=== PATIENT | male | born 1930 | race Caucasian/White ===

== ENCOUNTER 2016-04-25 05:42 | Day surgery (SDC) | payer MEDICARE, OTHER ==
[2016-04-25] VITALS (8 sets, daily range): BP systolic 111–148; BP diastolic 54–69; PULSE 54–69; RESP 15–17; O2SAT 95–100
[~2016-04-25] VITALS: Ht 174 cm; Wt 69.0 kg
[~2016-04-25 05:42] MED LIST: ASPI-973 PO; BENA20TA PO; METO25TA6 PO; MULT1CAP33 PO; OMEP20TA86 PO; SIMV10TA4 PO; VIT100TA PO
[2016-04-25] MEDS ORDERED: Propofol 10,000 mCg/mL 20 mL Inj ONE (05:43)
[2016-04-25] MEDS: Lactated Ringer's 1,000 ML IV SCH ×2 (05:51→07:28)
--- NOTE | 2016-04-25 07:26 | PCM.HPANE ---
Patient Data Surgeon Admitting Provider: Attending Provider:Eli Gutierrez MD Primary Care Physician:Jessee Alfaro MD Other Provider:Yeny Smithingham Anesthesia Reason for Visit Lymphadenopathy Ht/WT & BMI Height (Feet): 5 Height (Inches): 8.5 Weight (Kilograms): 69 Body Mass Index 22.00 Allergies Coded Allergies: No Known Allergies (Verified , 04/01/03) Past Anesthesia History Anesthesia History: Denies:: Abnormal Airway, Anesthesia Reactions, Difficult Intubation Diabetes History Hx Diabetes?: No MRSA MRSA: No Medications Hypertension Medication: Yes Home Meds Incl Beta Marina: Yes Date Beta Marina Taken: Apr 25, 2016 Time Beta Marina Taken: 0500 Reported Medications Multivitamin (Multivitamins)1 Each Capsule1 Each PO 03/29/16 Vit B Complex 100 Cmb #3/Herbs (Balanced B-100 Tablet)100 Mg [id number] Mg PO 03/29/16 Simvastatin 10 Mg Krnhqq94 Mg PO HS Ref 0 03/29/16 Omeprazole 20 Mg Tablet.dr20 Mg PO DAILY 03/29/16 Aspirin 81 Mg Tnyfrp29 Mg PO DAILY Ref 0 03/29/16 Metoprolol Tartrate 25 Mg Vpaeil44.5 Mg PO BID 30 Days Ref 0 03/29/16 Benazepril 20 Mg Nxpcov85 Mg PO DAILY 03/29/16 History History of ENT Problems?: No HEENT History: Positive for:: Sinus Problem (occasional) Denies:: Abnormal Airway Cataracts Difficult Intubation Dysphagia Hearing Problem Denture Type: Full- Upper Hx of Heart Problems?: Yes Cardiovascular History: Positive for:: Hypertension Valvular Heart Disease (echo 10/2015- ef 65-70%) Denies:: Cardiac Surgery Chest Pain Congestive Heart Failure Edema Heart Murmur Irregular Heartbeat Pacemaker Thrombophlebitis Hx of Respiratory Problem?: No Respiratory History: Denies:: Asthma COPD Emphysema Oxygen Administration Pneumonia Tuberculosis Use of C-PAP Machine Use of Inhalers / NEBS Hx Neurologic Problems?: Yes Neurological History: Denies:: CVA Multiple Sclerosis Parkinson's Disease Seizures Other Neurological Pertinent: prior hx of resection intracranial meningioma Hx of GI Problems?: No Gastrointestinal History: Positive for:: Gastroesphageal Reflux Heartburn Denies:: Diverticulitis Gastrointestinal Bleeding Hepatitis Rectal Bleeding Hx of Problems?: No Genitourinary History: Denies:: Kidney Stones Urinary Tract Infection Male Hx: Denies:: Scrotal Mass Testicular Surgery Skin History: Denies:: History Skin Disorders? Pressure Ulcers Hx Musculoskeletal Problems?: No Musculoskeletal History: Denies:: Back Injury Joint Replacement Musculoskeletal Trauma (prior hx knee scope) Hx of Psycho/Social Problems?: No Psycho Social History: Positive for:: Anxiety Denies:: Bipolar Disorder Hx Depression Hx Surgeries?: Yes (brain, knee scope, FTSG for BCC neck) Hx Any Other Health Problems?: Yes Other History: Positive for:: Cancer (BCC (one required FTSG)) Hospitalization Thyroid Disease History Blood Transfusions: Denies:: Blood Transfusions Hx Diabetes: No Hx Alcohol Use: YesHx Substance Use: No Smoking Status: Former Smoker Have You Smoked inLast 12 mo: No Stop/Bang Treated for Sleep Apnea?: No Do You Have a CPAP Machine?: No S-Snoring: Do You Snore Loudly: No T-Tired: feel tired, fatigued: No O-Obsered: Observed not breath: No P-Blood Pressure: treated: Yes B- Body Mass Index > 35 kg/m2: No A- Age over 50: Yes N- Neck Large Circumference: No G- Gender Male: Yes YANNA Total Score: 3 YANNA Risk Assessment: Low Risk, <3 Yes Risk Assessment Category Category 1A: Patient has history of documented sleep apnea, and HAS NOT received any narcotic, sedative or anesthesia administration during this stay. Category 1B: Patient has history of documented sleep apnea, and HAS received any narcotic , sedative or anesthesia administration during this stay Category 2: Patient has SUSPECTED Obstructive Sleep Apnea, and HAS received any narcotic , sedative or anesthesia administration during this stay. Category 3: Patient has SUSPECTED Obstructive Sleep Apnea and HAS NOT received narcotic, sedative or anesthesia administration during this stay. Category 4: Outpatient in Procedural Areas with known sleep apnea or who screen positive for High Risk via the STOP/BANG questionnaire. Exam Exam Vital Signs Vital Signs Date Time Temp Pulse Resp B/P Pulse Ox O2 Delivery O2 Flow Rate FiO2 04/25/16 05:59 35.5 55 17 148/69 98 Room Air General Appearance: Oriented X3 HEENT/AIRWAY: MP 2 Lungs: Normal Air Movement Heart: Regular Rate/Rhythm Meds/Labs/Diagnostics Admission Meds Current Medications Lactated Ringer's (Lr) 1,000 ml @ 120 mls/hr Q8H20M IV Last administered on t 05:51; Start 04/25/16 at 05:00; Stop 04/25/16 at 13:19 Plan Impression Patient chart reviewed, patient interviewed and anesthestic plan with risks, benefits, and alternatives discussed, and informed consent obtained. NPO Status: 1800 04/24/16 ASA Physical Status: ASA2 Mod Systemic Disease Anesthetic Plan: GA Bene/Risks/Altern/Consents: Yes HP Complete Prior to Induction: Yes Coy Kirkpatrick MD Apr 25, 2016 07:25
[2016-04-25] MEDS ORDERED: Bupivacaine-MPF 0.5% 30 mL Inj INFILTRATE ONE (07:45)
[2016-04-25] MEDS ORDERED: Lactated Ringer's 1,000 ML IV SCH (08:02)
[2016-04-25] MEDS ORDERED: Lactated Ringer's 500 ML IV PRN (08:02)
[2016-04-25] MEDS ORDERED: HYDROmorphone 1 mg/mL Inj IVPUSH PRN (08:05)
[2016-04-25] MEDS ORDERED: Phenylephrine 10,000 mCg/mL Inj IVPUSH PRN (08:05)
[2016-04-25] MEDS ORDERED: MetoCLOpramide 5 mg/mL 2 mL Inj IVPUSH PRN (08:05)
[2016-04-25] MEDS ORDERED: Ondansetron 2 mg/mL 2 mL Inj IVPUSH PRN (08:05)
[2016-04-25] MEDS ORDERED: Dexamethasone 4 mg/mL Inj IVPUSH PRN (08:05)
[2016-04-25] MEDS ORDERED: fentaNYL-PF 50 mCg/mL 2 mL Inj IVPUSH PRN (08:05)
[2016-04-25] MEDS ORDERED: EPHEDrine Sulfate 50 mg/mL Inj IVPUSH PRN (08:05)
[2016-04-25] MEDS ORDERED: HYDROcodone-APAP 5-325 mg Tablet PO PRN (09:45)
[2016-04-25] MEDS ORDERED: HYDR-4003 PO (09:55)
--- NOTE | 2016-04-25 10:08 | PCM.SURGPO ---
Immediate Operative Note Date of Surgery: Apr 25, 2016 Pre Operative Diagnosis Lymphadenopathy Post Operative Diagnosis Lymphadenopathy Procedure Excisional biopsy of Right supraclavicular lymph node [employer] Surgeon: Eli Gutierrez MD Assistants: Les Lewis PAC Findings One obviously enlarged lymph node. Complications There were no periprocedural complications identified. Surgical Specimen Removed: Yes Specimen sent to Pathology: Yes Surgical Specimen description: 1. R Supraclavicular lymph node bearing tissue 2. R supraclavicular lyph node 3. R supraclavicular lymph node - divided in to 3 pieces for flow cytometry in addition to path Anesthetic Administered: GA Grafts, Implants: None Output, Estimated Blood Loss: 0 Blood Admin during surgery: No Attending Statement Traveling Buyer listed was medically necessary for the successful completion of the case Eli Gutierrez MD Apr 25, 2016 10:08
--- NOTE | 2016-04-25 10:27 | PCM.ANEP1 ---
Post Anesthesia Phase 1 PACU Phase 1 Assessment Date of Service: Apr 25, 2016 Vital Signs Vital Signs Date Time Temp Pulse Resp B/P Pulse Ox O2 Delivery O2 Flow Rate FiO2 04/25/16 10:24 58 15 125/59 95 Room Air 04/25/16 10:05 63 15 111/58 95 04/25/16 10:02 69 17 127/65 97 Room Air 04/25/16 09:55 57 15 139/64 100 Simple Mask 10 04/25/16 09:50 36.5 58 17 120/59 100 Simple Mask 10 04/25/16 05:59 35.5 55 17 148/69 98 Room Air Anesthetic Administered: GA Level of Alertness: Awake, talking Pain: No Nausea or Vomiting: No Oxygen Delivery: Room Air Lungs: Normal Air Movement Coy Kirkpatrick MD Apr 25, 2016 10:27
--- NOTE | 2016-04-25 10:28 | PCM.ANEP2 ---
Post Anesthesia Evaluation ASA/CMS Post Anesthesia VS in Patient's Normal Range?: Yes Resp Stable; Airway Patent?: Yes CV Function & Hydration Stable: Yes Mental Status Recovered?: Yes Pain control Satisfactory?: Yes N/V Control Satisfactory?: Yes Coy Kirkpatrick MD Apr 25, 2016 10:27
--- NOTE | 2016-04-25 10:48 | OP ---
[address] [address] OPERATIVE REPORT PATIENT: KAYLI SOSA : 1930 MR#: [id number] ADMIT: 04/25/2016 JOB ID: [id number] DATE OF SURGERY: 04/25/2016 PREOPERATIVE DIAGNOSIS(ES): Generalized lymphadenopathy. POSTOPERATIVE DIAGNOSIS(ES): Generalized lymphadenopathy. PROCEDURE PERFORMED: Right supraclavicular excisional lymph node biopsy. SURGEON: Eli Gutierrez MD. NON LINEAR EDITOR: Les Lewis PA-C COMPLICATIONS: None. CONDITION OF PATIENT: Stable. INDICATIONS: The patient is a 85-year-old gentleman who was instantly found to have lymphadenopathy in multiple anatomic locations upon investigating his shortness of breath a few months ago. His breathing felt fine now. None of the lymph nodes being palpated by the physicians were ever tender. These findings prompted Dr. Alfaro to refer him to Dr. Carbajal who in turn sent him to me for excisional biopsy of lymph node. On physical examination, noted to have a hard palpable lymph node in the right supraclavicular fossa and on CT he had a large portacaval lymph node and also iliac chain lymph node in addition to inguinal adenopathy. After discussing the risks, benefits, and alternatives, he is here today for excisional biopsy of right supraclavicular lymph node. PROCEDURE DETAILS: He underwent smooth induction of general anesthesia and the right neck was prepped and draped in the usual sterile fashion. Surgical time-out was undertaken using safety checklist, and all were in agreement. I made a 3 cm incision along Joanie lines. The right supraclavicular fossa had palpable swelling and divided the skin and subcutaneous tissue sharply and then opened the platysma. At this point I was feeling what appeared to be the palpable swelling deep to the right jugular. I isolated a branching vein, a small tributary into the jugular as retracting it with vessel loops and the jugular carefully exploring deep to that. I ended up sharply dissecting some lymph node-bearing tissue in this region but was not able to identify a discrete lymph node. Further exploration inferior to the omohyoid revealed one palpable lymph node which I sharply dissected from the surrounding tissues and sent for pathology. Upon further exploration, I felt a much larger lymph node in the more lateral aspect of the incision prompting me to extend the skin incision another centimeter and mobilize the omohyoid more laterally and isolated the palpable lymph node from surrounding attachments, controlling the lymphatics with clips and electrocautery as indicated. After removing this third specimen, I divided into three parts to send one to anatomic pathology and two parts for flow cytometry. After ensuring hemostasis, we closed the incision in layers with 3-0 Vicryl for the platysma followed by 4-0 Monocryl for the skin. He tolerated the procedure well and was taken to the recovery room in stable condition. SHANTANU
--- NOTE | 2016-05-02 13:31 | PATH ---
SURGICAL PATHOLOGY Attending Physician:Eli Gutierrez MD CASE STATUS: Signed Out PATIENT NAME: KAYLI SOSA PID: [id number] : 1930 DATE COLLECTED:04/25/2016 22:37 SPECIMEN: 1: Lymph Node, Biopsy 2: Lymph Node, Biopsy 3: Lymph Node, Biopsy CLINICAL HISTORY: LYMPHADENOPATHY 1). RIGHT SUPRACLAVICULAR LYMPH NODE BEARING TISSUE 2). RIGHT SUPRACLAVICULAR LYMPH NODE 3). 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 Abnormal CD5+ B-cell population identified (see Flow Comments) 2. 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 Immunohistochemical studies were performed on the lymph node in specimen 3 because it is the largest. 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 A subset of cells in the proliferation centers of the tissue are cyclin D1 positive, a finding that has been described in some CLL/SLL cases (see reference). Evaluation of the patient' s peripheral blood is recommended to determine if he may also exhibit an abnormal B-cell population in the peripheral circulation. If there is also peripheral blood involvement, FISH studies could be performed on the blood to look for molecular abnormalities with prognostic significance in CLL/SLL and to formally exclude the t(11;14) of mantle cell lymphoma. If the patient does not have significant peripheral blood involvement by CLL/SLL and if clinical interest warrants, sections of the paraffin-embedded tissue from specimen 3 could also be forwarded upon request for a FISH study to further exclude the t(11;14) of mantle cell lymphoma. Reference: Roxie Shelley et al. (2012) Chronic Lymphocytic Leukemia/Small Lymphocytic Lymphoma with Cyclin D1 Positive Proliferation Centers Do Not Have CCND1 Translocations or Gains and Lack SOX11 Expression. Am. J. Clin. Pathol. 138(1):132-139. Flow cytometry Comments: Flow cytometry identifies an abnormal mature B-cell population with predominantly small to intermediate cell size by forward scatter property, low-level kappa surface light chain restriction, and expression of intermediate CD19 and CD5, low-intermediate CD20 and CD22, intermediate-high CD23, and low CD11c, without CD10, FMC7, CD38, or CD103. This immunophenotype is most compatible with a chronic lymphocytic leukemia/small lymphocytic lymphoma (CLL/SLL); however, complete correlation with the morphologic and immunohistochemical features of the concurrent paraffin-embedded tissue, including evaluation of a cyclin D1 immunostain, will be required to exclude mantle cell lymphoma (MCL) and for definitive diagnosis. The abnormal B-cell population represents greater than 99% of the B-cells, and 79% of the lymphocytes and total viable leukocytes in this study. There is no immunophenotypic evidence of T-cell non-Hodgkin lymphoma. Flow cytometric analysis indicates that the viable leukocytes include greater than 99% lymphocytes, which are comprised of 80% B-cells, 19% T-cells, and 0.1% NK-cells. The mature B-cells have low-level kappa light chain restriction. The T-cells have a high-normal CD4:CD8 ratio of 4.9. GROSS DESCRIPTION: The following 3 specimens are received in formalin, labeled with the patient's name, and sublabeled as the following: (1) right supraclavicular lymph node bearing tissue; (2) right supraclavicular lymph node; (3) right supraclavicular lymph node #3. (1) The specimen consists of a piece of adipose tissue (3.5 x 3.5 x 0.4 cm) containing multiple possible lymph nodes (0.1 x 0.1-0.1 cm-0.5 x 0.4 x 0.2 cm). Section code: (1A) multiple candidate lymph nodes, intact; (1B) one lymph node, bisected; (1C, 1D) remaining adipose tissue. Specimen entirely submitted. (2) The specimen consists of a lymph node (0.9 x 0.6 x 0.6 cm). Section code: (2A) one lymph node, bisected. Specimen entirely submitted. (3) The specimen consists of a lymph node (0.6 x 0.5 x 0.4 cm). Section code: (3A) one lymph node, bisected. Specimen entirely submitted. Note: Also received are 2 tubes containing RPMI and tissue for flow cytometry analysis. 04/26/16 JM MICRO DESCRIPTION: Each of the small lymph nodes submitted in specimens 1-3 exhibits essentially complete architectural effacement by an atypical lymphoid infiltrate with a diffuse pattern. The lymphocytes are predominantly small, with condensed chromatin. Occasional slightly pale foci including intermediate-sized lymphocytes are also seen, consistent with proliferation centers (best seen in specimen 3). No confluent sheets of atypical large-sized cells are present, and there are no foci of incipient or geographic necrosis. Select immunohistochemical studies were performed on specimen 3, with appropriate positive and negative controls, to further evaluate the abnormal lymphoid infiltrate. The abnormal lymphocytes are Pax5+ B-cells with uniform coexpression of CD43 and bcl-2. A relatively small subset of cells with weak nuclear cyclin D1 expression is identified, which colocalize with the proliferation center regions. The [id number] proliferation rate among the lymphocytes inside the proliferation centers is about 15-18%, and the Pd-48-zxqfith proliferation rate among the lymphocytes outside of the proliferation centers is about 2-3%. Rare small germinal centers are also highlighted by the bcl-2 and Ki-67 immunostains (which are negative for bcl-2). There is no convincing expression or restriction of either kappa or lambda on the B-cells by IHC, but the rare background plasma cells are polytypic (indicating there is no plasmacytic component to the patient' s B-cell lymphoma). A small subset of CD3+ T-cells is also present in the background. ICD-9 CODES: CPT CODES: 1: 91400 2: 36066 3: 33266, 29878, 89537(7) Electronically Signed Out Nory Bañuelos M.D.,[facility] [address], [place] [address] Technical component performed at [facility], [facility] [address], [place], [address]
== END 2016-04-25 23:59 | disposition home or self-care (01) ==
LOC: SAS 05:42
PROVIDERS: ATTEND Student in an Organized Health Care Education/Training Program
DX: C91.10 Chronic lymphocytic leukemia of B-cell type not having achieved remission (principal); R59.1 Generalized enlarged lymph nodes; I10 Essential (primary) hypertension; I44.0 Atrioventricular block, first degree; I38 Endocarditis, valve unspecified; E78.5 Hyperlipidemia, unspecified; K21.9 Gastro-esophageal reflux disease without esophagitis; E03.9 Hypothyroidism, unspecified; F41.9 Anxiety disorder, unspecified; I48.91 Unspecified atrial fibrillation; Z85.828 Personal history of other malignant neoplasm of skin; Z79.82 Long term (current) use of aspirin; Z87.891 Personal history of nicotine dependence
CPT/HCPCS: 38510; J7120

== ENCOUNTER 2016-10-15 19:03 | Emergency (ER) | payer MEDICARE, OTHER ==
[~2016-10-15] VITALS: Ht 172.7 cm; Wt 67.7 kg
[~2016-10-15 19:03] MED LIST changes: +HYDR-4003 PO
[2016-10-15 19:14] VITALS: BP 181/84; PULSE 77; RESP 18; O2SAT 99
--- NOTE | 2016-10-15 20:26 | ED.REPORT ---
HPI-General Illness Date of Service Oct 15, 2016 ED Provider: Noel Figueroa MD Patient is an 85 year old male with a hx of HTN, thyroid disease, anemia, and lymphoma who presents to the ED complaining of high BP onset today (190/70). Associated symptoms include fatigue which he attributes to chemo, headache, and malaise. He denies chest pain, SOB, abdominal pain, vomiting, vision changes, focal weakness, or any other symptoms. He was taking 25mg metoprolol for HTN but has been taking half doses 2x a day for the last few weeks due to being hypotensive. He was taking a total of a pill and a half each day previously. He also takes benazepril daily with no recent changes to this dose. He has not missed any doses. He finished chemo 6 weeks ago. Nursing Notes Stated Complaint: HIGH BLOOD PRESSURE Chief Complaint: General Complaint Nursing Notes Reviewed: Yes Allergies: Coded Allergies: No Known Allergies (Verified , 10/15/16) Scheduled Aspirin (Aspirin) 81 Mg Tablet 81 MG PO DAILY Benazepril (Benazepril) 20 Mg Tablet 20 MG PO DAILY Metoprolol Tartrate (Metoprolol Tartrate) 25 Mg Tablet 12.5 MG PO BID Omeprazole (Omeprazole) 20 Mg Tablet.dr 20 MG PO DAILY Simvastatin (Simvastatin) 10 Mg Tablet 10 MG PO HS Scheduled PRN Hydrocodone-Acetaminophen 5-325 mg (Hydrocodone-Acetaminophen 5-325 mg) 1 Each Tablet 1-2 TABLET PO Q4H PRN PRN For Moderate Pain Miscellaneous Medications Multivitamin (Multivitamins) 1 Each Capsule 1 EACH PO Vit B Complex 100 Cmb #3/Herbs (Balanced B-100 Tablet) 100 Mg Tablet 100 MG PO General Time Seen by MD: 20:23 Chief Complaint Other (High blood pressure ) Hx Obtained From: Patient Arrived By: Walk-in Sudden in Onset?: Yes Onset Occurred: 9 - 12 hours ago Symptom Duration: Since onset Location: : Head Severity: Current: Mild Severity: Maximum: Mild Similar Sx Previous: Yes Past Medical History Past Medical History Lymphoma on chemo therapy Thyroid disease HTN anemia Reports: GERD Past Surgical History Brain surg Knee scope Full thickness skin graft Basal cell carcinoma removal - neck Smoking History Former Smoker Social History Other Social History: Good social support, Ambulatory Status Independent Review of Systems +High BP Full Review of Systems Constitutional: Reports: Fatigue, Malaise Respiratory: Denies: Shortness of breath Cardiovascular: Denies: Chest pain GI: Denies: Abdominal pain, Vomiting Neurologic: Reports: Headache, Denies: Focal weakness, Vision change Complete sys rev & neg: except as marked. Physical Exam Vital Signs Vital Signs Date Time Temp Pulse Resp B/P Pulse Ox O2 Delivery O2 Flow Rate FiO2 10/15/16 21:35 60 145/55 10/15/16 21:34 79 13 134/61 97 Room Air 10/15/16 21:34 67 129/55 10/15/16 19:14 37.0 77 18 181/84 99 Room Air Initial VS: Reviewed, Vital signs abnormal Head / Eyes: Atraumatic, Normocephalic Neck: Full range of motion Abdomen / GI: Soft, Non-tender Skin: Warm, Dry Neurologic: Alert, Oriented, Nonfocal Psychiatric: Mood/affect normal, Behavior normal, Normal thought content General/Constitutional: Awake, Alert, No acute distress Respiratory / Chest: Atraumatic, Breath sounds NL, Breath sounds = bilat, No respiratory distress Cardiovascular: Heart rate NL, Regular rhythm, Heart sounds NL, No gallop, No murmurs, No rubs Manual BP 166/80 Interpretation & Diagnostics Lab Results Interpretation Result Diagram: 10/15/16 2104 10/15/16 2104 Test 10/15/16 21:04 White Blood Count 3.3th/mm3 (3.8-10.1) Red Blood Count 3.19mil/mm3 (4.40-5.80) Hemoglobin 10.5g/dL (13.8-17.2) Hematocrit 30.1% (41.0-50.0) Mean Corpuscular Volume 94.4fL (81-100) Mean Corpuscular Hemoglobin 32.9pg (27.0-35.0) Mean Corpuscular Hemoglobin Concent 34.9% (32.0-37.0) Red Cell Distribution Width 12.9% (12.3-15.4) Platelet Count 164bil/L (150-400) Neutrophils (%) (Auto) 69.7% (40-74) Lymphocytes (%) (Auto) 11.7% (14-46) Monocytes (%) (Auto) 14.7% (4-12) Eosinophils (%) (Auto) 2.7% (0-5) Basophils (%) (Auto) 0.9% (0-3) Sodium Level 133mEq/L (134-144) Potassium Level 4.1mEq/L (3.5-5.2) Chloride Level 98mEq/L (97-108) Carbon Dioxide Level 21mmol/L (18-29) Blood Urea Nitrogen 16mg/dL (8-27) Creatinine 0.92mg/dL (0.76-1.27) Estimat Glomerular Filtration Rate 83mL/min (>59) Glucose Level 149mg/dL (60-99) Calcium Level 8.5mg/dL (8.5-10.1) Total Bilirubin 0.2mg/dL (0.0-1.2) Aspartate Amino Transf (AST/SGOT) 24U/L (0-50) Alanine Aminotransferase (ALT/SGPT) 15U/L (0-44) Alkaline Phosphatase 69U/L (25-160) Troponin T 0.010ug/L (0.0-0.011) Total Protein 6.2g/dL (6.4-8.4) Albumin 3.9g/dL (3.4-5.0) Hold Escudero Top Tube Received (Received) ECG Interpretation ECG Interpretation: sinus rate 68 Time: 21:00 Interpreted by: ED physician Re-Eval/Medical Decision Time of Eval: 20:37 Re-Evaluation/Progress Note: Discussed plan for labs and discharge if everything looks good. Patient understands and agrees with plan. All questions addressed at this time. Time of Eval: 22:00 Re-Evaluation/Progress Note: Rechecked pt. Discussed plan for discharge. Patient understands and agrees with plan. All questions addressed at this time Counseled Regarding: Diagnosis, Lab results, Need for follow-up, When/why to return to ED Discharge & Departure Primary Impression: Hypertension Hypertension type: essential hypertension Qualified Code: I10 - Essential ( primary) hypertension Disposition: Home Discharge Condition All VS Reviewed: Yes Condition: Stable Additional Instructions: ED evaluation today included interview exam and labs. No serious cause for elevated BP is found and the BP after resting is clearly not dangerous or likely to cause symptoms (166/80). Continue to check BP every 1-2 days. Record this and bring with you when you see your MD. Contact your doctor for follow up- call tomorrow. Keep taking current BP medicines. Return to ED for chest pain or shortness of breath or BP with either value above 210/110. Referrals: Jessee Alfaro MD (PCP) Scribe Attestation Portions of this note were transcribed by Deborah Odonnell. I, Dr. Figueroa personally performed the history, physical exam and medical decision-making; I reviewed and confirmed the accuracy of the information in the transcribed note. Signed by: Mejia Graff, 10/15/16 copies to: Jessee Alfaro MD, Donald L MD Oct 15, 2016 20:26 DEBORAH ODONNELL Oct 15, 2016 20:33
[2016-10-15 21:10] LABS: BASOPHILS % (AUTO) 0.9 % (0-3); EOSINOPHILS % (AUTO) 2.7 % (0-5); MONOCYTES % (AUTO) 14.7 % (4-12); Mean Corpuscular Hemoglobin 32.9 pg (27.0-35.0); Mean Corpuscular Volume 94.4 fL (81-100); NEUTROPHILS % (AUTO) 69.7 % (40-74); Platelet Count 164 bil/L (150-400)
[2016-10-15 21:34] VITALS: BP_SYST 129; BP_SYST 134; BP_DIAS 55; BP_DIAS 61; PULSE 67; PULSE 79; RESP 13; O2SAT 97
[2016-10-15 21:35] VITALS: BP 145/55; PULSE 60
[2016-10-15 21:37] LABS: TROPONIN T 0.01 ug/L (0.0-0.011)
== END 2016-10-15 22:15 | disposition home or self-care (01) ==
LOC: SED 19:03
DX: I10 Essential (primary) hypertension (principal); K21.9 Gastro-esophageal reflux disease without esophagitis; E07.9 Disorder of thyroid, unspecified; C85.90 Non-Hodgkin lymphoma, unspecified, unspecified site; D64.9 Anemia, unspecified; Z92.21 Personal history of antineoplastic chemotherapy; Z87.891 Personal history of nicotine dependence; Z79.82 Long term (current) use of aspirin